=== PATIENT | male | born 1965 | race Hispanic/Latino ===

== ENCOUNTER 2017-09-25 10:24 | Day surgery (SDC) | payer BC ==
[2017-09-20 10:00] VITALS: BMI 38.2
[2017-09-25] MEDS ORDERED: ceFAZolin 1 gm in NS 0 GM/0 ML BAG IVPB ONE (14:08)
[2017-09-25] MEDS ORDERED: Bupivacaine HCl 0.25% PF (30 ml) Inj ONE ×2 (14:08→14:22)
[2017-09-25] MEDS ORDERED: Lidocaine Hydrochloride 10 ML INJ ONE ×2 (14:13→14:17)
[2017-09-25] MEDS ORDERED: Lidocaine/Epinephrine 1% 1:100000 10 ML IJ ONE (14:15)
[2017-09-25] MEDS ORDERED: Lidocaine Hydrochloride 0 ML INJ ONE (14:22)
[2017-09-25] MEDS ORDERED: ceFAZolin 1 gm in NS 1 GM/100 ML BAG IVPB ONE (14:24)
[2017-09-25] MEDS ORDERED: Propofol 10 mg/ml Inj (20 ML) ONE (14:28)
[2017-09-25] MEDS ORDERED: Midazolam 2 MG/2 ML VIAL ONE (14:28)
[2017-09-25] MEDS ORDERED: Lidocaine Hydrochloride 5 ML INJ ONE (14:30)
[2017-09-25] MEDS ORDERED: HYDROmorphone 0.5 mg/0.5 ml ISec IVP PRN (15:32)
[2017-09-25] MEDS ORDERED: Lactated Ringer's 1,000 ML IV SCH (15:45)
[2017-09-25] MEDS ORDERED: Oxycodone/Acetaminophen 5/325 mg Tab PO PRN (15:46)
[2017-09-25 16:27] VITALS: RESP 18; O2SAT 97
[2017-09-25 16:57] VITALS: BP 123/70; PULSE 66; TEMP 98
--- NOTE | 2017-09-26 00:39 | OP ---
PROCEDURE DATE: 09/25/2017. PREOPERATIVE DIAGNOSIS: Soft tissue masses of the scalp, bilateral elbow and bilateral forearms. POSTOPERATIVE DIAGNOSIS: Soft tissue masses of the scalp, bilateral elbow and bilateral forearms. PROCEDURE PERFORMED: Wide and deep excision (radical resection of soft tissue tumors of the scalp, bilateral elbows and bilateral forearm). SURGEON: Jose Knowles MD. ANESTHESIA: General. ESTIMATED BLOOD LOSS: 40 mL. POSTOPERATIVE CONDITION: Stable. 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 He will undergo wide deep excision. GROSS FINDINGS: There was a 4 cm mass of the scalp, two 5 cm masses in the elbow and two 3 cm masses in the forearm, all were excised via wide and deep excision and repaired with tissue flap closure. PROCEDURE: The patient was taken to the operating room, IV sedation was administered and he was placed in the prone position. The scalp as well as bilateral upper extremities were prepped and draped. Attention was first turned to the scalpel where local anesthesia was administered over the scalp mass. A elliptical incision was made and a wide deep excision was performed into the scalp aponeurosis. Bleeding was controlled using the Bovie. Full-thickness tissue flaps were raised and adjacent tissue transfer closure measuring greater than 20 cm was performed using multiple layers of Monocryl, subcuticular Monocryl and skin clips. Attention was then turned to the right elbow and forearm where wide and deep excisions were performed of a 5-cm right elbow tumor and a 3-cm right forearm tumor, elliptical incisions were made overlying each tumor and they were dissected into the fascial layer and completely removed. Bleeding was controlled using the Bovie. Full-thickness skin flaps were made and counter incisions were made and adjacent tissue transfer closures of 30 cm2 and 20 cm2 respectively were performed. The above was repeated on the left side. A blood vessel in the left forearm had to be repaired to control bleeding. The patient tolerated the procedure well, returned to recovery room in stable condition. Jose Knowles MD
== END 2017-09-25 16:45 | disposition home or self-care (01) ==
LOC: C.SDS 10:24
PROVIDERS: ATTEND Surgery
DX: D17.21 Benign lipomatous neoplasm of skin and subcutaneous tissue of right arm (principal); D17.22 Benign lipomatous neoplasm of skin and subcutaneous tissue of left arm; L72.11 Pilar cyst; I10 Essential (primary) hypertension
CPT/HCPCS: 14021; 21014; 24073; 25073; J0690; J2250; J2704; J3010